=== PATIENT | male | born 2000 | race Caucasian/White ===

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

== ENCOUNTER → 2019-05-22 09:57 | Outpatient (CLI) | payer OTHER, SELFPAY ==
[2019-05-22 10:32] LABS: Add Manual Diff / Slide Review NO; Basophils Absolute Auto 0 /uL (0-100); Basophils Percent Auto 0.5 % (0-2); Eosinophils Absolute Auto 100 /uL (0-450); Eosinophils Percent Auto 1.7 % (2-4); Hematocrit 46.1 % (41-53); Hemoglobin 16.3 g/dL (13.5-17.5); Lymphocytes Absolute Auto 1700 /uL (1100-4500); Lymphocytes Percent Auto 31.9 % (25-40); Mean Corpuscular HGB Conc 35.4 % (30-36); Mean Corpuscular Volume 87.5 fL (80-100); Monocytes Absolute Auto 400 /uL (0-900); Monocytes Percent Auto 7.4 % (3-14); Neutrophils Absolute Auto 3100 /uL (1500-7000); Neutrophils Percent Auto 58.5 % (50-75); Platelet Count 169 X10^3/uL (150-400); Red Blood Cell Count 5.27 X10^6/uL (4.5-5.9); Red Cell Distribution Width 12.3 % (11.6-14.8); White Blood Cell Count 5.3 X10^3/uL (4.5-11.0)
[2019-05-22 10:35] LABS: Ur Creatinine Normal (Normal); Ur Specific Gravity Normal (Normal); Urine pH Normal (Normal)
[2019-05-22 10:37] LABS: UR Morphine/Opiate cutoff 300 Negative (Negative); Urine Amphetamines Negative (Negative); Urine Barbiturates Negative (Negative); Urine Benzodiazepines Negative (Negative); Urine Cocaine Negative (Negative); Urine MDMA Negative (Negative); Urine Methadone Negative (Negative); Urine Methamphetamines Negative (Negative); Urine Oxycodone Negative (Negative); Urine Phencyclidine Negative (Negative); Urine Tetrahydrocannabinol Negative (Negative); Urine Tricyclic Antidepressant Negative (Negative)
[2019-05-22 11:40] LABS: Alanine Aminotransferase 50 IU/L (<50); Albumin Globulin Ratio 1.6 (1.0-2.8); Alkaline Phosphatase 55 U/L (38-126); Aspartate Aminotransferase 34 IU/L (17-59); BUN Creatinine Ratio 22.2 (6-22); Bilirubin Total 0.3 mg/dL (0.2-1.3); Blood Urea Nitrogen 20 mg/dL (9-20); Calcium 10.1 mg/dL (8.4-10.2); Carbon Dioxide 28 mmol/L (22-32); Chloride 103 mmol/L (98-107); Estimated Glomerular Filt Rate > 60.0 mL/min (>60); Globulin 3.1 g/dL (1.7-4.1); Glucose 90 mg/dL (70-100); HEMOLYSIS < 15 (0-50); Potassium 4.4 mmol/L (3.4-5.1); Sodium 142 mmol/L (137-145); Total Protein 8.1 g/dL (6.3-8.2)
[2019-05-22 11:56] LABS: Free T4, Direct Thyroxine 0.93 ng/dL (0.78-2.19)
[2019-05-22 12:10] LABS: Thyroid Stimulating Hormone 0.86 uIU/mL (0.47-4.68)
== END ==
PROVIDERS: PCP Family Medicine; Referring Provider Psychiatry & Neurology Psychiatry; Visit Provider Psychiatry & Neurology Psychiatry
DX: F31.81 Bipolar II disorder (principal); F41.1 Generalized anxiety disorder
CPT/HCPCS: 36415; 80053; 80305; 84439; 84443; 85025; 90792

== ENCOUNTER 2019-05-28 17:55 | Observation (INO) | payer OTHER, SELFPAY ==
[2019-05-28 18:30] VITALS: BP 133/73; PULSE 68; RESP 18; TEMP 37.1; O2SAT 100; BMI 28.7
--- NOTE | 2019-05-28 18:49 | ED.ABDPAIN ---
HPI - Abdominal Pain General Chief Complaint: Abdominal Pain Stated Complaint: right side abd pain, suspects appendicitis Time Seen by Provider: 05/28/19 17:58 Source: patient and family Mode of arrival: Family Vehicle Limitations: no limitations History of Present Illness HPI narrative: 19-year-old male nonsmoker with no significant medical history presents with both parents and a chief complaint of right lower quadrant pain which he awoke with. He denies much in the way of other symptoms such as fever, chills nor nausea or vomiting. His appetite is intact. He states the pain is worse with motion, palpation and improves with rest. He denies any history of the same. He denies any urinary complaints such as dysuria, frequency or urgency. He denies any discharge or testicular pain. He denies any change in his bowel habits. MD complaint: abdominal pain Pain Consistency: constant Location: RLQ Severity: moderate Quality: cramping, stabbing and aching Radiation: none Migration to: no migration Relieving factors: rest Exacerbating factors: movement Associated symptoms: denies other symptoms Related Data Home Medications Medication Instructions Recorded Confirmed cyanocobalamin (vitamin B-12) 1,000 mcg PO DAILY 05/22/19 05/28/19 1,000 mcg capsule Previous Rx's Medication Instructions Recorded sertraline 50 mg tablet 75 mg PO DAILY #30 tab 05/22/19 Allergies Allergy/AdvReac Type Severity Reaction Status Date / Time No Known Drug Allergies Allergy Verified 05/28/19 18:33 Review of Systems Constitutional Constitutional: Denies chills, Denies fatigue, Denies fever(s), Denies frequent falls, Denies lethargy and Denies weakness Eyes Eyes: Denies change in vision, Denies eye discharge, Denies irritation and Denies loss of vision ENT Ears, Nose, Mouth, and Throat: Denies change in voice, Denies dizziness, Denies neck pain, Denies sore throat and Denies throat swelling Cardiovascular Cardiovascular: Denies chest pain, Denies irregular heart rhythm, Denies lightheadedness, Denies palpitations, Denies dyspnea, Denies dyspnea on exertion and Denies orthopnea Respiratory Respiratory: Denies cough, Denies dyspnea, Denies dyspnea on exertion and Denies wheezing Gastrointestinal Gastrointestinal: Reports abdominal pain, Denies change in bowel habits, Denies diarrhea, Denies nausea and Denies vomiting Genitourinary Genitourinary: Denies hematuria, Denies flank pain, Denies urinary incontinence and Denies urinary urgency Musculoskeletal Musculoskeletal: Denies back pain, Denies muscle weakness, Denies neck pain, Denies numbness and Denies tingling Integumentary/Breasts Skin/Breast: Denies pruritus, Denies erythema, Denies rash and Denies wounds Neurologic Neurologic: Denies behavioral changes, Denies confusion, Denies dizziness, Denies frequent falls, Denies loss of vision, Denies numbness, Denies tingling and Denies weakness Psychiatric Psychiatric: Denies anxiety, Denies behavioral changes, Denies confusion, Denies depression, Denies homicidal ideation and Denies suicidal ideation Endocrine Endocrine: Denies fatigue, Denies flushing and Denies palpitations Hematologic/Lymphatic Hematologic/Lymphatic: Denies easy bruising Allergic/Immunologic Allergic/Immunologic: Denies urticaria, Denies throat swelling and Denies wheezing Patient History Medical History Adjustment disorder with mixed anxiety and depressed mood (Inactive) Bipolar II disorder (Acute) Generalized anxiety disorder (Acute) Social History household members: none Smoking Status: Never smoker alcohol intake: current substance use type: does not use Smoking Status: Never smoker alcohol intake frequency: holidays/special occasions only Substance Use Type: does not use Exam Narrative Exam Narrative: GENERAL: [19] year old patient appears stated age. Well-nourished, well-developed patient, in mild distress. HEAD: Atraumatic. Normocephalic. EYES: Pupils equal round and reactive. Extraocular motions intact. No scleral icterus. No injection or drainage. ENT: Nose without bleeding, purulent drainage. Throat without erythema, tonsillar hypertrophy or exudate. Airway patent. NECK: Trachea midline. Non tender CARDIOVASCULAR: Regular rate and rhythm without murmurs, gallops, or rubs. RESPIRATORY: Clear to auscultation. Breath sounds equal bilaterally. No wheezes, rales, or rhonchi. GASTROINTESTINAL: Abdomen soft, right lower quadrant tender to palpate, no rebound, nondistended. Negative Rovsing's, psoas and obturator : Uncircumcised male with bilaterally descended testicles. No obvious external manifestation of illness. No tenderness to palpation, no suggestion of inguinal hernia. This exam is performed with patient standing EXTREMITIES: No edema or joint tenderness. BACK: Nontender without deformity or crepitance. No flank tenderness. NEURO: AOx3. SKIN: No rash or erythema of visible areas Initial Vital Signs Initial Vital Signs: Vital Signs Temperature 98.7 F 05/28/19 18:30 Pulse Rate 68 05/28/19 18:30 Respiratory Rate 18 05/28/19 18:30 Blood Pressure 133/73 05/28/19 18:30 Pulse Oximetry 100 05/28/19 18:30 Course Orders Ordered: ED Orders 05/28/19 18:54 Complete Blood Count AUTO DIFF Stat Comprehensive Metabolic Panel Stat Lipase Stat 05/28/19 19:27 CT abdomen pelvis w con Stat Piperacillin/Tazobactam/Dextrose (Zosyn) 3.375 gm in 50 mls @ 100 mls/hr IV Q8H [facility] Last Infusion: 05/28/19 22:06 Dose: 100 mls/hr Documented by: Infusion: 05/28/19 21:08 Dose: 0 mls/hr Documented by: Admin: 05/28/19 20:56 Dose: 100 mls/hr Documented by: MICHEAL Sodium Chloride (Normal Saline 0.9%) 1,000 mls @ 125 mls/hr IV CONT [facility] Last Admin: 05/28/19 22:09 Dose: 125 mls/hr Documented by: RANDY Morphine Sulfate (Morphine) 2 mg IV Q4HR PRN PRN Reason: Pain, Severe (7-10) Ondansetron HCl (Zofran) 4 mg IV Q4HR PRN PRN Reason: Nausea And Vomiting Oxycodone/Acetaminophen (Percocet 5/325) 1 tab PO Q4HR PRN PRN Reason: Pain, Moderate (4-6) Sertraline HCl (Zoloft) 50 mg PO BEDTIME [facility] Last Admin: 05/28/19 22:22 Dose: 50 mg Documented by: RANDY Discontinued Medications Sodium Chloride (Normal Saline 0.9%) 1,000 mls @ 1,000 mls/hr IV BOLUS ONE Stop: 05/28/19 19:57 Last Infusion: 05/28/19 20:10 Dose: 0 mls/hr Documented by: Admin: 05/28/19 19:09 Dose: 1,000 mls/hr Documented by: MICAELA Ondansetron HCl (Zofran) 4 mg IV NOW ONE Stop: 05/28/19 18:59 Last Admin: 05/28/19 19:09 Dose: 4 mg Documented by: MICAELA Vital Signs Vital signs: Vital Signs - 8 hr 05/28/19 20:23 Temperature 98.7 F Pulse Rate 65 Respiratory Rate 15 Blood Pressure [Left Arm] 135/75 Pulse Oximetry 99 MDM - Abdominal Pain Lab Data Result diagrams: 05/28/19 18:54 05/28/19 18:54 Labs: Lab Results 05/28/19 05/28/19 05/28/19 Range/Units 18:54 18:54 18:54 WBC 9.0 (4.5-11.0) X10^3/uL RBC 4.87 (4.5-5.9) X10^6/uL Hgb 15.0 (13.5-17.5) g/dL Hct 42.3 (41-53) % MCV 86.9 (80-100) fL MCH 30.8 (26-34) PG MCHC 35.4 (30-36) % RDW 12.2 (11.6-14.8) % Plt Count 189 (150-400) X10^3/uL Neut % (Auto) 64.7 (50-75) % Lymph % (Auto) 24.9 L (25-40) % [place] % (Auto) 9.0 (3-14) % Eos % (Auto) 1.0 L (2-4) % Baso % (Auto) 0.4 (0-2) % Neut # (Auto) 5800 (9280-2757) /uL Lymph # (Auto) 2200 (6635-9149) /uL [place] # (Auto) 800 (0-900) /uL Eos # (Auto) 100 (0-450) /uL Baso # (Auto) 0 (0-100) /uL PT Cancelled INR Cancelled APTT Cancelled Sodium 139 (137-145) mmol/L Potassium 3.7 (3.4-5.1) mmol/L Chloride 104 (98-107) mmol/L Carbon Dioxide 23 (22-32) mmol/L BUN 16 (9-20) mg/dL Creatinine 0.90 (0.66-1.25) mg/dL Estimated GFR > 60.0 (>60) mL/min BUN/Creatinine Ratio 17.8 (6-22) Glucose 87 (70-100) mg/dL Calcium 9.7 (8.4-10.2) mg/dL Total Bilirubin 0.5 (0.2-1.3) mg/dL AST 27 (17-59) IU/L ALT 21 (<50) IU/L Alkaline Phosphatase 65 (38-126) U/L Total Protein 8.0 (6.3-8.2) g/dL Albumin 4.9 (3.5-5.0) g/dL Globulin 3.1 (1.7-4.1) g/dL Albumin/Globulin Ratio 1.6 (1.0-2.8) Lipase 117 (23-300) U/L Point of care testing: Urine Dip Bedside Urine Glucose Negative Bedside Urine Bilirubin - Negative Bedside Urine Ketone + 15 Urine Specific [place] 1.015 Bedside Urine Occult Blood - Negative Bedside Urine pH 7.0 Bedside Urine Protein - Negative Bedside Urine Urobilinogen +/- 1mg Bedside Urine Nitrite - Negative Bedside Urine Leukocytes - Negative Esterase Imaging Data CT scan - abdomen/pelvis: Radiologist's Impression: Chart Viewer Diagnostics DATE TYPE STATUS AUTHOR Hx 05/28/19 19:27 Chaparro Reynolds 12/07/18 15:20 Dung Landin 12/04/18 14:11 Yosvany Morataya Vidal M 19, M1 ADM RONNIE, 224 -1 177.8cm 90.718kg BMI: 28.7kg/m? Search Chart No Data to Display ONSET 02/23/11 05/28/19 23:20 Oliver Claire 19 M [address] [address] [address] Scan Report Signed Patient: Margret Clairel [facility]#: [id number] : 2000Acct:[id number] Age/Sex: 19 / MDate of Service: 05/28/19 Loc: ED Accession Number: [id number] Procedure: CT abdomen pelvis w con Ordering Provider: Caldwell,Jhonny D.O. PROCEDURE: CT ABDOMEN PELVIS W CON INDICATIONS: severe RLQ pain TECHNIQUE: After the administration of intravenous contrast, 5 mm thick sections acquired from the diaphragm to the symphysis. 5 mm coronal and sagittal reformats were acquired. For radiation dose reduction, the following was used: automated exposure control, adjustment of mA and/or kV according to patient size. COMPARISON: None. FINDINGS: Image quality: Excellent. ABDOMEN: Lung bases: Lung bases are clear. Heart size is normal. Solid organs: Liver is normal in size and enhancement. Gallbladder is within normal limits. Biliary system is non dilated. Pancreas enhances normally. There is splenomegaly, no discrete splenic lesion is seen. No adrenal nodules. Kidneys demonstrate normal size and enhancement, without hydronephrosis. Peritoneum and bowel: There is no bowel obstruction. The appendix is visualized in right lower quadrant abdomen containing at least 2 appendicolith measures up to 8 x 5 mm in size. Appendix is borderline enlarged and measures up to 7-8 mm in thickness with mild appendiceal wall thickening and small amount of periappendiceal fat stranding concerning for acute appendicitis and appendicolith. No other area of abnormal bowel wall thickening. No abscess collection. No free fluid or free air. Nodes and vessels: No retroperitoneal or mesenteric adenopathy by size criteria. Aorta and inferior vena cava are normal in size. Miscellaneous: No ventral hernias. PELVIS: Genitourinary: Bladder wall thickness is normal. Miscellaneous: No inguinal hernias or adenopathy. Bones: No suspicious bony lesions. No vertebral body compression fractures. IMPRESSION: 1. Finding is highly suggestive of early acute appendicitis with appendicolith. No abscess collection. No evidence of perforation. No bowel obstruction. No free fluid or free air. 2. Mild splenomegaly. No discrete splenic lesion. Dictated by: Chaparro Reynolds M.D. on 05/28/2019 at 20:06 Approved by: Chaparro Reynolds M.D. on 05/28/2019 at 20:10 Discharge Plan Departure Patient Disposition: Admitted as Observation Clinical Impression: Acute appendicitis Qualifiers: Acute appendicitis type: with localized peritonitis Appendicitis gangrene presence: without gangrene Appendicitis perforation presence: without perforation Appendicitis abscess presence: without abscess Qualified Code(s): K35.30 - Acute appendicitis with localized peritonitis, without perforation or gangrene Discharge Date/Time: 05/28/19 21:15 Admit Date/Time: 05/28/19 20:37 Admit Provider: Eladio Bettencourt
[2019-05-28 19:09] LABS: Add Manual Diff / Slide Review NO; Basophils Absolute Auto 0 /uL (0-100); Basophils Percent Auto 0.4 % (0-2); Eosinophils Absolute Auto 100 /uL (0-450); Hematocrit 42.3 % (41-53); Lymphocytes Absolute Auto 2200 /uL (1100-4500); Lymphocytes Percent Auto 24.9 % (25-40); Mean Corpuscular HGB Conc 35.4 % (30-36); Mean Corpuscular Hemoglobin 30.8 PG (26-34); Mean Corpuscular Volume 86.9 fL (80-100); Monocytes Absolute Auto 800 /uL (0-900); Neutrophils Absolute Auto 5800 /uL (1500-7000); Neutrophils Percent Auto 64.7 % (50-75); Platelet Count 189 X10^3/uL (150-400); Red Blood Cell Count 4.87 X10^6/uL (4.5-5.9); Red Cell Distribution Width 12.2 % (11.6-14.8)
[2019-05-28] MEDS: ONDANSETRON 4 MG/2 ML INJ IV (19:09)
[2019-05-28] MEDS: SODIUM CHLORIDE 0.9% 1,000 ML 1000 ML IV (19:09)
[2019-05-28 19:22] LABS: Alanine Aminotransferase 21 IU/L (<50); Albumin 4.9 g/dL (3.5-5.0); Albumin Globulin Ratio 1.6 (1.0-2.8); Alkaline Phosphatase 65 U/L (38-126); Aspartate Aminotransferase 27 IU/L (17-59); BUN Creatinine Ratio 17.8 (6-22); Bilirubin Total 0.5 mg/dL (0.2-1.3); Blood Urea Nitrogen 16 mg/dL (9-20); Calcium 9.7 mg/dL (8.4-10.2); Carbon Dioxide 23 mmol/L (22-32); Chloride 104 mmol/L (98-107); Estimated Glomerular Filt Rate > 60.0 mL/min (>60); Globulin 3.1 g/dL (1.7-4.1); Glucose 87 mg/dL (70-100); HEMOLYSIS 18 (0-50); Lipase 117 U/L (23-300); Potassium 3.7 mmol/L (3.4-5.1); Sodium 139 mmol/L (137-145)
--- NOTE | 2019-05-28 19:27 | DI.CT.S_ITS ---
PROCEDURE: CT ABDOMEN PELVIS W CON INDICATIONS: severe RLQ pain TECHNIQUE: After the administration of intravenous contrast, 5 mm thick sections acquired from the diaphragm to the symphysis. 5 mm coronal and sagittal reformats were acquired. For radiation dose reduction, the following was used: automated exposure control, adjustment of mA and/or kV according to patient size. COMPARISON: None. FINDINGS: Image quality: Excellent. ABDOMEN: Lung bases: Lung bases are clear. Heart size is normal. Solid organs: Liver is normal in size and enhancement. Gallbladder is within normal limits. Biliary system is non dilated. Pancreas enhances normally. There is splenomegaly, no discrete splenic lesion is seen. No adrenal nodules. Kidneys demonstrate normal size and enhancement, without hydronephrosis. Peritoneum and bowel: There is no bowel obstruction. The appendix is visualized in right lower quadrant abdomen containing at least 2 appendicolith measures up to 8 x 5 mm in size. Appendix is borderline enlarged and measures up to 7-8 mm in thickness with mild appendiceal wall thickening and small amount of periappendiceal fat stranding concerning for acute appendicitis and appendicolith. No other area of abnormal bowel wall thickening. No abscess collection. No free fluid or free air. Nodes and vessels: No retroperitoneal or mesenteric adenopathy by size criteria. Aorta and inferior vena cava are normal in size. Miscellaneous: No ventral hernias. PELVIS: Genitourinary: Bladder wall thickness is normal. Miscellaneous: No inguinal hernias or adenopathy. Bones: No suspicious bony lesions. No vertebral body compression fractures. IMPRESSION: 1. Finding is highly suggestive of early acute appendicitis with appendicolith. No abscess collection. No evidence of perforation. No bowel obstruction. No free fluid or free air. 2. Mild splenomegaly. No discrete splenic lesion. Dictated by: Chaparro Reynolds M.D. on 05/28/2019 at 20:06 Approved by: Chaparro Reynolds M.D. on 05/28/2019 at 20:10
[2019-05-28 20:23] VITALS: BP 135/75; PULSE 65; RESP 15; TEMP 37.1; O2SAT 99
[2019-05-28] MEDS: PIPERACILLIN-TAZO 3.375 GM/50 ML FROZ.PIGGY IV (20:56)
[2019-05-28 21:22] VITALS: BP 136/68; PULSE 75; RESP 16; TEMP 37.4; O2SAT 100; BMI 28.7
[2019-05-28] MEDS: SODIUM CHLORIDE 0.9% 1,000 ML 125 ML IV (22:09)
--- NOTE | 2019-05-28 22:15 | PC.NURSE ---
Patient admitted from ER. Arrived via wheelchair and ambulated well. NS @ 125, Zosyn running. No complaints of pain. Given orientation to room. Vitals stable, T 99.4, patient is NPO until surgery, which is supposed to be at 630am. Per patient, has recent diagnosis of depression and is taking Zoloft, 50mg at bedtime. I called Dr. Bettencourt to get this order.
[2019-05-28] MEDS: SERTRALINE 50 MG TABLET PO (22:22)
[2019-05-28 23:20] VITALS: BP 120/69; PULSE 67; RESP 18; TEMP 37.2; O2SAT 99
[2019-05-29] VITALS (13 sets, daily range): BP systolic 104–132; BP diastolic 64–94; PULSE 69–112; RESP 10–23; TEMP 35.8–37.2; O2SAT 92–100
--- NOTE | 2019-05-29 | PATH_ITS ---
[facility] Accession Number: [id number] . 01 Material submitted: . appendix - APPENDIX . 01 Clinical history: . RIGHT SIDE ABD PAIN, SUSPECT APPENDICITIS . 02 Diagnosis: Appendix, Appendectomy: Acute appendicitis with serositis. Negative for dysplasia and malignancy. MRV 05/31/2019 0943 Local . 02 Electronically signed: . Tamara Rios MD, Pathologist NPI- [id number] . 01 Gross description: . Received in formalin, labeled appendix, is an intact appendix (length-6.0 cm, diameter-0.8 cm) with new, smooth, shiny serosa and attached mesoappendix (up to 1.5 cm in depth). The resection margin is received stapled. The lumen contains pale new, paste-like material. The wall is up to 0.3 cm thick. No nodules, masses or lesions are identified. The resection margin is inked blue. Section code: (A1) resection margin en face, fuels sales representative serial sections; (A2) tip, longitudinal, fuels sales representative. ([id number]) ([id number]) /MRV 05/31/2019 0945 Local . 02 Pathologist provided ICD-10: K35.80 . 02 CPT . 166849 Performed at: 01 [facility] [address], [place], [place] [id number] MD Norberto Abreu MD Phone: [phone] Performed at: 02 [facility] [place] [address] [place], [place] [id number] MD Tamara Rios MD Phone: [phone]
[2019-05-29] MEDS: PIPERACILLIN-TAZO 3.375 GM/50 ML FROZ.PIGGY IV ×2 (04:10→12:35)
[2019-05-29] MEDS: SODIUM CHLORIDE 0.9% 1,000 ML 125 ML IV (05:48)
--- NOTE | 2019-05-29 06:03 | PM.HP.1 ---
History of Present Illness History of Present Illness Date Patient Seen: 05/29/19 Time Patient Seen: 06:03 Chief complaint: right side abd pain, suspects appendicitis Narrative: Oliver is a 19-year-old male with acute appendicitis. The presented with 24 hours of right lower quadrant pain underwent a CT in the emergency room that demonstrates acute appendicitis with a fecalith. No vomiting no fever. No prior abdominal surgery. No significant past medical history. Patient History Medical History Adjustment disorder with mixed anxiety and depressed mood (Inactive) Bipolar II disorder (Acute) Generalized anxiety disorder (Acute) Family & Social History Social History: household members none Prior Living Arrangements Apartment/Condo Safety & Behavioral: Feels Safe in Current Yes Environment Been Physically Hurt or No Threatened By a Person Suicidal Ideation Description Vague Suicide Plan Description No Plan Tobacco & Substance use: Smoking Status Never smoker alcohol intake current alcohol intake frequency holiday/special occasion Substance Use Type does not use Meds Home Medications and Allergies Home Medications Medication Instructions Recorded Confirmed Type cyanocobalamin (vitamin B-12) 1,000 mcg PO DAILY 05/22/19 05/28/19 History 1,000 mcg capsule sertraline 50 mg tablet 75 mg PO DAILY #30 tab 05/22/19 05/28/19 Rx Allergies Allergy/AdvReac Type Severity Reaction Status Date / Time No Known Drug Allergies Allergy Verified 05/28/19 18:33 Review of Systems Review of Systems Narrative: A 10 point review of systems is negative except as noted in the HPI Exam Vital Signs (past 8 hours): - 05/28/19 23:20 05/29/19 05:31 Temperature 98.9 F 98.0 F Pulse Rate 67 69 Respiratory Rate 18 18 Blood Pressure 120/69 125/65 Pulse Oximetry 99 98 Oxygen Delivery Method Room Air Oxygen Flow Rate 0 Narrative Exam Narrative: General-no acute distress, well nourished HEENT-moist mucous membranes, no scleral icterus Neck-supple, no lymphadenopathy Chest- non labored respirations, clear to auscultation bilaterally Cardiac-regular rate no peripheral edema Abdomen-tender right lower quadrant no peritonitis Extremities-warm, well perfused Neurological-alert and oriented, no focal deficits Objective Labs Result Diagrams: 05/28/19 18:54 05/28/19 18:54 Labs: Laboratory Results - last 24 hr 05/28/19 05/28/19 05/28/19 18:54 18:54 18:54 WBC 9.0 RBC 4.87 Hgb 15.0 Hct 42.3 MCV 86.9 MCH 30.8 MCHC 35.4 RDW 12.2 Plt Count 189 Neut % (Auto) 64.7 Lymph % (Auto) 24.9 L [place] % (Auto) 9.0 Eos % (Auto) 1.0 L Baso % (Auto) 0.4 Neut # (Auto) 5800 Lymph # (Auto) 2200 [place] # (Auto) 800 Eos # (Auto) 100 Baso # (Auto) 0 PT Cancelled INR Cancelled APTT Cancelled Sodium 139 Potassium 3.7 Chloride 104 Carbon Dioxide 23 BUN 16 Creatinine 0.90 Estimated GFR > 60.0 BUN/Creatinine Ratio 17.8 Glucose 87 Calcium 9.7 Total Bilirubin 0.5 AST 27 ALT 21 Alkaline Phosphatase 65 Total Protein 8.0 Albumin 4.9 Globulin 3.1 Albumin/Globulin Ratio 1.6 Lipase 117 Assessment & Plan Assessment and plan (1) Acute appendicitis: Qualifiers: Acute appendicitis type: with localized peritonitis Appendicitis abscess presence: without abscess Appendicitis gangrene presence: without gangrene Appendicitis perforation presence: without perforation Qualified Code(s): K35.30 - Acute appendicitis with localized peritonitis, without perforation or gangrene Current visit: Yes Status: Acute Assessment & Plan narrative: Oliver is a 19-year-old male with acute appendicitis non perforated. Right lower quadrant pain for [address] confirming acute appendicitis. Laparoscopic appendectomy is indicated. We discussed the technical nature of the procedure expected postoperative recovery and associated operative risk of bleeding infection conversion to open damage to surrounding structure. His questions have been answered and he is in agreement with this plan.
--- NOTE | 2019-05-29 06:04 | PC.NURSE ---
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 Bettencourt aware
[2019-05-29] MEDS: LACTATED RINGERS 1,000 ML 42 ML IV (06:30)
--- NOTE | 2019-05-29 06:43 | SUR.OPER ---
Supine on padded OR bed, head on pillow, left arm padded and tucked at side, right arm secured on padded armboard, legs uncrossed, safety belt at thigh, tape over blanket over lower legs .
[2019-05-29] MEDS: BUPIVACAINE 0.5% (PF) VIAL 30 ML INJ (06:50)
--- NOTE | 2019-05-29 07:33 | PM.OP.1 ---
Operative Date/Time/Diagnoses Date of procedure: 05/29/19 Time of procedure: 07:33 Pre-op diagnosis: Acute appendicitis Post-op diagnosis: same Procedure & Clinicians Procedure: Laparoscopic appendectomy Same procedure as scheduled: Yes Indications: Acute appendicitis Surgeon: Eladio Bettencourt Anesthesia Type: General Operative Notes Findings: Acute non perforated appendicitis Specimen(s): other (Appendix) Estimated Blood Loss (mL): 15 Procedure in detail: Patient was brought to the operating room placed supine on the table. Bilateral lower extremity compression devices were applied. They were induced and intubated with an endotracheal tube. They received 3.375 g of Zosyn prior to skin incision. They were prepped and draped in sterile fashion. Time-out was performed to ensure the correct patient procedure necessary equipment within the operating room. The skin was infiltrated with 0.25% bupivacaine. A infraumbilical incision was made the umbilical stalk was grasped and elevated and incision was made and the abdomen was entered atraumatically. A 12 mm balloon trocar was then placed into the incision and pneumoperitoneum was established. The scope was then inspected abdomen inspected and there was no evidence of injury upon entry. Two 5 mm working ports were then placed supra pubic and in the left lower quadrant. The small bowel was then swept to the upper aspect of the abdomen. The tenie were followed to the base of the cecum where the appendix was identified. The appendix was was mobilized from its lateral attachements. It was acutely inflamed but not perforated. The appendix was grasped and a window within the mesentery was made. The appendix was then transected from the cecum using the Endo GI stapler with a blue load. Next the mesentery to the appendix was taken with the stapler using the vascular staple load. The specimen was removed using the Endo-Catch bag. The abdomen was irrigated and hemostasis was checked The ports were then removed under direct visualization. The umbilical fascial incision was closed with 0 Vicryl in a figure-eight fashion. The skin wounds were irrigated and closed with Monocryl followed by the application of Dermabond. Sponge instrument count at the end of the operation was correct. The patient tolerated procedure well was extubated and transferred to the postoperative care unit in stable condition Complications: none Post-operative Condition: stable Disposition: Acute Care
[2019-05-29] MEDS: HYDROMORPHONE 2 MG INJ IV ×3 (07:44→08:01)
[2019-05-29] MEDS: ONDANSETRON 4 MG/2 ML INJ IV (07:52)
--- NOTE | 2019-05-29 08:23 | SUR.PHASEI ---
Report called to Marilyn.
--- NOTE | 2019-05-29 08:50 | SUR.PHASEI ---
Patient transferred to the floor by Jumana. Patient reported 3/10 mid sternal chest pain during transfer. Appeared anxious and taking deep breaths. Skin pink, VS stable, sats 100%ra. Reported to Roberto.
--- NOTE | 2019-05-29 12:43 | PM.DS.1 ---
History of Present Illness History of Present Illness Chief complaint: right side abd pain, suspects appendicitis Narrative: Oliver is a 19-year-old male with acute appendicitis. The presented with 24 hours of right lower quadrant pain underwent a CT in the emergency room that demonstrates acute appendicitis with a fecalith. No vomiting no fever. No prior abdominal surgery. No significant past medical history. Discharge Providers Provider Date of admission: 05/28/19 20:37 Discharge Date: 05/29/19 Primary care physician: Annmarie Holland MD Discharge provider: Eladio Bettencourt MD Summary Hospital Course Discharge Diagnosis: Acute appendicitis Hospital Course: Patient underwent laparoscopic appendectomy which was notable for acute non perforated appendicitis. Postoperative observation was unremarkable tolerated diet its urinating spontaneously and ambulatory pain is well controlled on oral medication. Status at Discharge Cognitive/behavioral status at discharge: oriented Functional status at discharge: independent ambulation Overall status at discharge: patient is back to baseline Time Spent with Patient Time spent: Greater than 30 minutes Exam Vital Signs (past 8 hours): - 05/29/19 05:31 05/29/19 07:30 05/29/19 07:31 Temperature 98.0 F 96.8 F L 97.8 F Pulse Rate 69 102 H 105 H Respiratory Rate 18 23 20 Blood Pressure 125/65 107/64 124/74 Pulse Oximetry 98 92 99 05/29/19 07:34 05/29/19 07:39 05/29/19 07:44 Temperature Pulse Rate 103 H 102 H 91 H Respiratory Rate 21 17 11 L Blood Pressure 114/69 129/69 113/73 Pulse Oximetry 99 100 96 05/29/19 07:54 05/29/19 08:04 05/29/19 08:13 Temperature 97.5 F L Pulse Rate 93 H 93 H 81 Respiratory Rate 15 10 L 14 Blood Pressure 129/89 124/76 118/84 Pulse Oximetry 100 100 96 05/29/19 08:19 05/29/19 08:29 05/29/19 08:45 Temperature 96.4 F L Pulse Rate 101 H 90 112 H Respiratory Rate 11 L 17 20 Blood Pressure 104/72 132/88 126/80 Pulse Oximetry 100 100 100 05/29/19 11:20 Temperature 99.0 F Pulse Rate 100 H Respiratory Rate 18 Blood Pressure 125/94 H Pulse Oximetry 97 Oxygen Delivery Method Room Air Oxygen Flow Rate 0 Narrative Exam Narrative: General adult male alert oriented no acute distress Abdomen soft appropriately tender to palpation incisions clean dry intact Objective Labs Result Diagrams: 05/28/19 18:54 05/28/19 18:54 Labs: Laboratory Results - last 24 hr 05/28/19 05/28/19 05/28/19 18:54 18:54 18:54 WBC 9.0 RBC 4.87 Hgb 15.0 Hct 42.3 MCV 86.9 MCH 30.8 MCHC 35.4 RDW 12.2 Plt Count 189 Neut % (Auto) 64.7 Lymph % (Auto) 24.9 L [place] % (Auto) 9.0 Eos % (Auto) 1.0 L Baso % (Auto) 0.4 Neut # (Auto) 5800 Lymph # (Auto) 2200 [place] # (Auto) 800 Eos # (Auto) 100 Baso # (Auto) 0 PT Cancelled INR Cancelled APTT Cancelled Sodium 139 Potassium 3.7 Chloride 104 Carbon Dioxide 23 BUN 16 Creatinine 0.90 Estimated GFR > 60.0 BUN/Creatinine Ratio 17.8 Glucose 87 Calcium 9.7 Total Bilirubin 0.5 AST 27 ALT 21 Alkaline Phosphatase 65 Total Protein 8.0 Albumin 4.9 Globulin 3.1 Albumin/Globulin Ratio 1.6 Lipase 117 Discharge Plan Discharge Plan Patient Disposition: Home Discharge orders & Medications Prescriptions: New ibuprofen 200 mg tablet 800 mg PO Q6H PRN (Reason: pain) Qty: 60 RF: 0 docusate sodium [Colace] 100 mg capsule 100 mg PO BID Qty: 30 RF: 0 oxycodone 5 mg tablet 5 mg PO Q6H PRN (Reason: pain) Qty: 30 RF: 0 acetaminophen [Tylenol] 325 mg capsule 650 mg PO QID PRN (Reason: pain) Qty: 60 RF: 0 Continued cyanocobalamin (vitamin B-12) 1,000 mcg capsule 1,000 mcg PO DAILY RF: 0 sertraline 50 mg tablet 75 mg PO DAILY Qty: 30 RF: 3 Follow up/Referrals: Eladio Bettencourt MD [Physician] - Annmarie Holland MD [Primary Care Provider] - Diet/Activity/Treatments Diet: Regular Activity: No lifting >20 lbs x 4 weeks. Walking only for exercise for 4 [address] while taking narcotics. Skin/Wound/Dressing Care Report to your healthcare provider any signs of infection, such as:: chills, fever, increased pain and unusual drainage Visit Report/Discharge Packet Instructions: DI for an Appendectomy Discharge Data Primary Care Provider: Annmarie Holland Attending Provider: Eladio Bettencourt Admit Date/Time: 05/28/19 20:37
--- NOTE | 2019-05-29 14:26 | PC.NURSE ---
AM shift. pt arrived from PACU at 0845. AO and receptive to care. Reporting 3/10 pain in chest and abdomen which progressively improved. LR infused at 42/hr with intermittent ABX. Tolerated a general diet. Ambulated in room and in hallways. Tolerating a 3/10 pain. Chest pain resolved with ambulation. PIV removed and tolerated well. Changed into personal clothes and belongings packed up. DC instructions provided. No questions remained. Transferred pt in to personal vehicle.
== END 2019-05-29 14:20 | disposition home or self-care (01) ==
LOC: ED 20:32 → AC 20:37
PROVIDERS: Admitting Provider Surgery; Emergency Provider Emergency Medicine; PCP Family Medicine; Visit Provider Surgery
PROC: 0DTJ4ZZ Resection of Appendix, Percutaneous Endoscopic Approach (ICD-10-PCS; CPT 44970; principal; 2019-05-29 05:30)
DX: K35.80 Unspecified acute appendicitis (principal); R10.31 Right lower quadrant pain
CPT/HCPCS: 44970; 36415; 74177; 80053; 81003; 83690; 85025; 94762; 96361; 96365; 96366; 96375; 96376; 99219; 99284; G0378; J0330; J1100; J1170; J2405; J2543; J2704; J3010

== ENCOUNTER → 2021-04-01 09:17 | Outpatient (CLI) | payer OTHER, SELFPAY ==
[2021-04-01 10:10] LABS: COVID19 -Nasal RAPID Negative (Negative)
== END ==
PROVIDERS: PCP Family Medicine; Visit Provider Nurse Practitioner Family
DX: Z20.822 Contact with and (suspected) exposure to COVID-19 (principal)
CPT/HCPCS: 87635